=== PATIENT | male | born 1975 | race Caucasian/White ===

== ENCOUNTER 2017-10-20 11:52 | Emergency (ER) | payer OTHER ==
[~2017-10-20] VITALS: Ht 177.8 cm; Wt 63.5 kg
[~2017-10-20 11:52] MED LIST: ACIDOPHILUS1 CAP PO; BACTRIM DS 8001 TAB PO; CLONAZEPAM0.5 M2 PO; CLONAZEPAM0.5 MG PO; CYMBALTA 20 MG20 MG PO; CYMBALTA30 M1 PO; CYMBALTA60 MG PO; FLEXERIL10 MG PO; LEVSIN0.125 M1 PO; MEDROL DOSEPAK1 PAC PO; MELATONIN5 M3 PO; MIRTAZAPINE15 MG PO; PERCOCET 5-3251 EACH PO; PROTONIX20 M1 PO; REMERON15 M2 PO; SINGULAIR10 M1 PO; TAMSULOSIN HYD0.4 MG PO; VIBRAMYCIN100 MG PO; VICODIN 5-3001 EACH PO; VICODIN5-300 PO
[2017-10-20 15:43] LABS: ABSOLUTE BASOPHIL COUNT 0 /CUMM (0.0-0.2); ABSOLUTE EOSINOPHIL COUNT 0.2 /CUMM (0.0-0.7); ABSOLUTE GRANULOCYTE CT 6.4 /CUMM (1.4-6.5); ABSOLUTE MONOCYTE COUNT 0.7 /CUMM (0.10-0.60); BASOPHIL % 0.3 % (0.0-2.0); EOSINOPHIL % 1.7 % (0-5); GRANULOCYTE % 68.9 % (42.2-75.2); HEMATOCRIT 46.9 % (42-52); MEAN CORPUSCULAR HGB 30.4 PG (27.0-31.0); MEAN CORPUSCULAR HGB CONC 32.9 G/DL (33.0-37.0); MEAN CORPUSCULAR VOLUME 92.5 FL (80.0-94.0); MEAN PLATELET VOLUME 9.6 FL (7.4-10.4); PLATELET COUNT 202 /CUMM (130-400); RBC DISTRIBUTION WIDTH 13.8 % (11.5-14.5); RED BLOOD CELL CT 5.07 /CUMM (4.70-6.10); WHITE BLOOD CELL COUNT 9.3 /CUMM (4.8-10.8)
[2017-10-20 15:46] VITALS: BP 112/71
--- NOTE | 2017-10-20 16:02 | ED GI/GU/ABDOMINAL COMPLAINT ---
History of Present Illness General Chief Complaint: Abdominal Pain/Flank Pain Stated Complaint: ABD PAIN Source: patient Exam Limitations: no limitations Vital Signs & Intake/Output Vital Signs & Intake/Output Vital Signs Date Time Temp Pulse Resp B/P B/P Pulse O2 O2 Flow FiO2 Mean Ox Delivery Rate 10/20 1546 98.4 65 16 112/71 98 Room Air 10/20 1206 97.0 89 20 95/64 96 Room Air Allergies Coded Allergies: Iodinated Contrast- Oral and IV Dye (IODINATED CONTRAST MEDIA - IV DYE) (Severe, ANAPHYLAXIS 04/25/16) diphenhydramine (From BENADRYL) (INTERFERES WITH ANXIETY MEDS 04/25/16) oxycodone (ITCHY AND SWEATING 04/25/16) Reconcile Medications Clonazepam 0.5 MG TABLET 1 TAB PO PRN ANXIETY (Reported) Duloxetine Hydrochloride (Cymbalta) 30 MG CAPSULE.DR 1 CAP PO DAILY DEPRESSION (Reported) Mirtazapine (Remeron) 15 MG TABLET 1 TAB PO QPM SLEEP (Reported) Oxycodone HCl/Acetaminophen (Percocet 5-325 MG Tablet) 5 MG-325 MG TABLET 1-2 TAB PO BID pain Triage Note: PT TO ED C/O CONTINUED ABD PAIN. PT WAS SEEN IN ED FOR SAME ON 10/14. SENT HOME AND TOLD TO F/U WITH GI. PT STATES HE IS WAITING FOR GI TO CALL HIM BACK FOR AN APPT. THIS AM PT STATES THE PAIN WAS WORSE. C/O NAUSEA. DENIES V/D. STATES HE FEELS DEHYDRATED. Triage Nurses Notes Reviewed? yes Onset: Last week Duration: constant Timing: single episode today Quality/Severity: burning, dullness Severity Numbers: 6 Location: right lower quadrant Radiation: RUQ Activities at Onset: none Prior Abdominal Problems: 20 LBS WEIGHT LOSS WITHIN 1 MONTH Sexually Active: Yes (15 PARTNERS IN 6 MONTHS) Last Time You Were Sexual: less than 2 months ago Sexual Orientation: Heterosexual Use of Protection: Yes Always No Modifying Factors: none Associated Symptoms: fever/chills, fatigue HPI: PATIENT IS A 42 Y/O MALE, PMH OF ANXIETY AND HERNIA REPAIR, PRESENTS WITH ONE WEEK OF RLQ ABDOMINAL PAIN. PATIENT STATES THAT HE CAME TO THE HOSPITAL LAST WEEKS DURING WHICH THEY DID A CT SCAN OF HIS ABDOMEN WHICH WAS NEGATIVE ASIDE FOR RENAL CALCULI. LIPASE WAS SLIGHTLY ELEVATEED AT THAT TIME. HE WAS DISCHARGED WITH DIRECTIONS TO RECIEVE AN OUTPATIENT ULTRASOUND. PATIENT STATES THAT HIS PAIN CONTINUES TO BE A 6/10 AND IS WORSE WHILE LAYING ON HIS RIGHT SIDE. HE REPORTS OCCASSIONAL NAUSEA BUT NO VOMITING, CHILLS, FATIGUE, AND A 20 LBS WEIGHT LOSS IN THE LAST MONTH. HE ALSO REPORTS DECREASED SLEEP AND OCCASIONAL BLURRY VISOIN WITHIN THE LAST WEEK. HE DENIES AND CP, SOB, HEADACHE, DIZZINESS, DYSURIA, CONSTIPATION, DIARRHEA, MYALGIA, AND FEVERS. PATIENT REPORTS THAT HE RECIEVED AN ENDOSCOPY AND COLONOSCOPY AT [facility] 2 WEEKS AGO DUE TO THE RECENT WEIGHTLOSS.THERE WAS NOTHING ACUTE REPORTED. (Yanick Connelly) Past History Travel History Traveled to [facility] past 21 day No Medical History Any Pertinent Medical History? see below for history Neurological: NONE EENT: NONE Cardiovascular: NONE Respiratory: NONE Gastrointestinal: INGUINAL HERNIA Hepatic: NONE Renal: KIDNEY STONES Musculoskeletal: NONE Psychiatric: anxiety Endocrine: NONE Blood Disorders: NONE Cancer(s): NONE HEART SPECIALIST/Reproductive: PROSTATITIS Surgical History Surgical History: hernia repair-inguinal Psychosocial History Who do you live with Mother What is your primary language Swedish Tobacco Use: Current Daily Use Daily Tobacco Use Amount/Type: => 5 Cigarettes daily ETOH Use: denies use Illicit Drug Use: denies illicit drug use Family History Hx Contributory? No Sexual History Sexually Active Yes # of partners 15 Sexual Orientation Heterosexual Use of Protection Yes Always (Yanick Connelly) Review of Systems Review of Systems Constitutional: Reports: no symptoms. EENTM: Reports: blurred vision. Respiratory: Reports: no symptoms. Cardiovascular: Reports: no symptoms. GI: Reports: see HPI. Genitourinary: Reports: no symptoms. Musculoskeletal: Reports: no symptoms. Skin: Reports: no symptoms. Neurological/Psychological: Reports: no symptoms. Hematologic/Endocrine: Reports: no symptoms. Immunologic/Allergic: Reports: no symptoms. All Other Systems: Reviewed and Negative (Yanick Connelly) Physical Exam Physical Exam General Appearance: well developed/nourished, no apparent distress, alert, awake , anxious Head: atraumatic, normal appearance Eyes: Bilateral: normal appearance, EOMI. Ears, Nose, Throat, Mouth: hearing grossly normal, moist mucous membrane Neck: normal inspection Respiratory: normal breath sounds, chest non-tender, no respiratory distress, lungs clear Cardiovascular: regular rate/rhythm Gastrointestinal: normal bowel sounds, soft, no organomegaly, tenderness Rectal: deferred Male Genitals: normal genitalia, normal cremaster reflex Back: normal range of motion Skin: intact, normal color, warm/dry Core Measures ACS in differential dx? No Sepsis Present: No Sepsis Focused Exam Completed? No (Ty FELIX,Yanick) Progress Differential Diagnosis: appendicitis, biliary colic, bowel obstruction, colon cancer, cholecystitis, diverticulitis, gastritis, inflamm bowel dis, orchitis, pancreatitis, peptic ulcer Plan of Care: Orders Procedure Date/time Status LIPASE 10/20 1505 Complete COMPREHENSIVE METABOLIC PANEL 10/20 1505 Complete CBC WITHOUT DIFFERENTIAL 10/20 1505 Complete AMYLASE 10/20 1505 Complete Laboratory Tests 10/20/17 1535: Anion Gap 9, Estimated GFR > 60, BUN/Creatinine Ratio 14.4, Glucose 85, Calcium 9.1, Total Bilirubin 0.6, AST 15 L, ALT 27, Alkaline Phosphatase 66, Total Protein 6.8, Albumin 3.9, Globulin 2.9, Albumin/Globulin Ratio 1.3, Amylase 56, Lipase 132, CBC w Diff NO MAN DIFF REQ, RBC 5.07, MCV 92.5, MCH 30.4, RDW 13.8, MPV 9.6, Gran % 68.9, Lymphocytes % 21.6, Monocytes % 7.5, Eosinophils % 1.7, Basophils % 0.3, Absolute Granulocytes 6.4, Absolute Lymphocytes 2.0, Absolute Monocytes 0.7 H, Absolute Eosinophils 0.2, Absolute Basophils 0, PUBS MCHC 32.9 L 10/20/17 1505: Urine Color Cancelled, Urine Clarity Cancelled, Urine pH Cancelled, Ur Specific [place] Cancelled, Urine Protein Cancelled, Urine Ketones Cancelled, Urine Nitrite Cancelled, Urine Bilirubin Cancelled, Urine Urobilinogen Cancelled, Ur Leukocyte Esterase Cancelled, Ur Microscopic Cancelled, Urine Hemoglobin Cancelled, Urine Glucose Cancelled Initial ED EKG: none Comments: 10/20/2017 6:05:15 PM Patient clinically looks well. Patient is in no apparent distress. Patient is nontoxic-appearing. Patient is resting comfortably in room. No acute findings here in the emergency room. Patient had a recent CT scan. Spoke with Dr. Roberto from Dr. neurology. Patient is going to follow up with nurse practitioner that he is been seen in their office. Return if any other concerns. Patient has had negative HIV testing in the past year. Medically safe for discharge at this time. (Yanick Connelly) Departure Departure Disposition: HOME OR SELF CARE Condition: Stable Clinical Impression Primary Impression: Abdominal pain Referrals: Serena Campos MD (PCP/Family) Additional Instructions: F/U WITH GASTROENTEROLGIST. RETURN FI ANY CONCERNS/WORSENING OF SYMPTOMS. Departure Forms: Customer Survey General Discharge Information Prescriptions: Current Visit Scripts Oxycodone HCl/Acetaminophen (Percocet 5-325 MG Tablet) 1-2 TAB PO BID #10 TAB (Yanick Connelly) PA/INDIVIDUAL PENSION ADVISER Co-Sign Statement Statement: ED Attending supervision documentation- [] I saw and evaluated the patient. I have also reviewed all the pertinent lab results and diagnostic results. I agree with the findings and the plan of care as documented in the PA's/INDIVIDUAL PENSION ADVISER's documentation. [X] I have reviewed the ED Record and agree with the PA's/INDIVIDUAL PENSION ADVISER's documentation. [] Additions or exceptions (if any) to the PAs/INDIVIDUAL PENSION ADVISER's note and plan are summarized below: [] (Raven ALEXANDER,Valerie)
[2017-10-20] MEDS ORDERED: PERCOCET 5-3251 EACH PO (18:01)
== END 2017-10-20 17:27 ==
LOC: ERH 11:52
PROVIDERS: Physician Assistant Medical
DX: R10.31 Right lower quadrant pain (principal)

== ENCOUNTER 2017-11-10 04:36 | Emergency (ER) | payer OTHER ==
[~2017-11-10] VITALS: Ht 177.8 cm; Wt 63.5 kg
--- NOTE | 2017-11-10 05:12 | ED GI/GU/ABDOMINAL COMPLAINT ---
History of Present Illness General Chief Complaint: Abdominal Pain/Flank Pain Stated Complaint: PAIN TO RT SIDE ABD/GROIN PAIN Source: patient, old records Exam Limitations: no limitations Vital Signs & Intake/Output Vital Signs & Intake/Output Vital Signs Date Time Temp Pulse Resp B/P B/P Pulse O2 O2 Flow FiO2 Mean Ox Delivery Rate 11/10 1428 96.8 61 20 91/53 96 Room Air 11/10 1010 56 20 102/63 95 Room Air 11/10 0657 95.7 60 18 112/66 97 Room Air 11/10 0554 97.9 78 18 114/69 99 Room Air 11/10 0447 97.0 84 20 119/83 98 Room Air Allergies Coded Allergies: Iodinated Contrast- Oral and IV Dye (IODINATED CONTRAST MEDIA - IV DYE) (Severe, ANAPHYLAXIS 04/25/16) diphenhydramine (From BENADRYL) (INTERFERES WITH ANXIETY MEDS 04/25/16) oxycodone (ITCHY AND SWEATING 04/25/16) Reconcile Medications Clonazepam 0.5 MG TABLET 1 TAB PO PRN ANXIETY (Reported) Mirtazapine (Remeron) 15 MG TABLET 1 TAB PO QPM SLEEP (Reported) Triage Note: PT HERE WITH C/O BILATERAL GRION PAIN, ABD PAIN. PT REPORTS THAT THIS HAS BEEN GOING ON FOR APPROX 1 MONTH. PT REPORTS NAUSEA, DENIES VOMITTING OR DIARRHEA. Triage Nurses Notes Reviewed? yes HPI: Patient presents with right lower quadrant and right lower back pain that started on Thursday. The pain has been aching in nature. Positive anorexia but no nausea or vomiting. No diarrhea. No fevers or chills. The patient is been constant. He rates the pain at 7 out of 10. Last night his right testicle became swollen and began to hurt. Patient was unable to sleep last night so he comes in for evaluation. (Haroldo ALEXANDER,Artie Lang) Past History Travel History Traveled to [place] past 21 day No Medical History Any Pertinent Medical History? see below for history Neurological: NONE EENT: NONE Cardiovascular: NONE Respiratory: NONE Gastrointestinal: INGUINAL HERNIA BLOODY STOOLS Hepatic: NONE Renal: KIDNEY STONES Musculoskeletal: NONE Psychiatric: anxiety Endocrine: NONE Blood Disorders: NONE Cancer(s): NONE KAIAKO KOHANGA REO/Reproductive: PROSTATITIS Surgical History Surgical History: hernia repair-inguinal Psychosocial History Who do you live with Mother What is your primary language Belarusian Tobacco Use: Current Daily Use Daily Tobacco Use Amount/Type: => 5 Cigarettes daily ETOH Use: denies use Illicit Drug Use: denies illicit drug use Family History Hx Contributory? No (Haroldo ALEXANDER,Artie Lang) Review of Systems Review of Systems Constitutional: Reports: see HPI, weakness. EENTM: Reports: no symptoms. Respiratory: Reports: no symptoms. Cardiovascular: Reports: no symptoms. GI: Reports: see HPI, abdominal pain. Genitourinary: Reports: see HPI. Musculoskeletal: Reports: see HPI, back pain. Skin: Reports: no symptoms. Neurological/Psychological: Reports: no symptoms. Hematologic/Endocrine: Reports: no symptoms. Immunologic/Allergic: Reports: no symptoms. All Other Systems: Reviewed and Negative (Haroldo ALEXANDER,Artie Lang) Physical Exam Physical Exam General Appearance: well developed/nourished, alert, awake, anxious, mild distress Head: atraumatic, normal appearance Eyes: Bilateral: PERRL, EOMI. Ears, Nose, Throat, Mouth: hearing grossly normal, DRY MUCOSA Neck: normal inspection, supple, full range of motion Respiratory: normal breath sounds, chest non-tender, no respiratory distress, lungs clear Cardiovascular: regular rate/rhythm, normal peripheral pulses Gastrointestinal: normal bowel sounds, soft, tenderness (RLQ), NO GUARDING OR REBOUND Male Genitals: RIGHT TESTICLE SWOLLEN AND TENDER, NORMAL CREMESTERIC REFLEX, NO HERNIA PALPABLE. Back: normal inspection, normal range of motion, NO CVA TENDERNESS, PAIN TO RIGHT LOWER BACK JUST ABOVE THE BELT LINE BUT NONTENDER TO PALPATION. Extremities: normal range of motion Neurologic/Psych: no motor/sensory deficits, awake, alert, oriented x 3, normal gait, normal mood/affect Skin: intact, normal color, warm/dry Core Measures ACS in differential dx? No Sepsis Present: No Sepsis Focused Exam Completed? No (Artie Zarco MD) Progress Differential Diagnosis: appendicitis, diverticulitis, epididymitis, orchitis, testicular torsion Plan of Care: Orders Procedure Date/time Status URINALYSIS 11/10 050 Complete LIPASE 11/10 0509 Complete COMPREHENSIVE METABOLIC PANEL 11/10 508 Complete CBC WITHOUT DIFFERENTIAL 11/10 508 Complete AMYLASE 11/10 508 Complete Laboratory Tests 11/10/17 0840: Urinalysis LIGHT H, Urine Color YEL, Urine Clarity CLEAR, Urine pH 6.0, Ur Specific [place] 1.020, Urine Protein NEG, Urine Ketones NEG, Urine Nitrite NEG, Urine Bilirubin NEG, Urine Urobilinogen 0.2, Ur Leukocyte Esterase TRACE H, Ur Microscopic SEDIMENT EXAMINED, Urine RBC 1-3, Urine WBC 1-3 H, Urine Mucus FEW, Urine Hemoglobin NEG, Urine Glucose NEG 11/10/17 0515: Anion Gap 12, Estimated GFR > 60, BUN/Creatinine Ratio 13.3, Glucose 83, Calcium 8.9, Total Bilirubin 0.6, AST 18, ALT 38, Alkaline Phosphatase 76, Total Protein 6.5, Albumin 3.9, Globulin 2.6, Albumin/Globulin Ratio 1.5, Amylase 72, Lipase 98, CBC w Diff NO MAN DIFF REQ, RBC 5.25, MCV 92.2, MCH 30.3, RDW 13.4, MPV 10.2 , Gran % 57.1, Lymphocytes % 29.5, Monocytes % 8.9, Eosinophils % 3.9, Basophils % 0.6, Absolute Granulocytes 5.2, Absolute Lymphocytes 2.7, Absolute Monocytes 0.8 H, Absolute Eosinophils 0.4, Absolute Basophils 0.1, PUBS MCHC 32.8 L Diagnostic Imaging: Viewed by Me: CT Scan. Discussed w/RAD: CT Scan. Initial ED EKG: none Hand-Off Endorsed To: Chintan Jones MD Endorsed Time: 0700 Pending: CT, ultrasound Comments: No relief from IV Tylenol. Patient states that he is had morphine in the past and has not had a problem with it. (Haroldo ALEXANDER,Artie Lang) Diagnostic Imaging: Viewed by Me: Ultrasound. Discussed w/RAD: Ultrasound. Radiology Impression: Normal sonographic appearance of the testicles. No evidence for testicular torsion or hyperemia. Similar appearance of small right varicocele., 1. Stable appearance of the appendix by comparison with the prior study, the appendix is gas containing and is normal in caliber currently measuring approximately 5 mm in diameter with no periappendiceal inflammatory changes present. 2. There is circumferential wall thickening of a 7 cm segment of the distal ileum to the level of the ileocecal junction with contrast present within a very narrow lumen (string sign). The finding suggests an inflammatory bowel syndrome such as Crohn's disease. Clinical correlation requested. Hand-Off Endorsed To: Yordy Jasmine MD Endorsed Time: 1500 Pending: consult (GI) Comments: Disucssed with GI requests MRI/A pancreatic protocol. No MRI today. GI to see patient in ED. (Chintan Jones MD) Comments: 11/10/17 15:00 pt signed out to me by dr jones. dr hanson to evaluate pt shortly. 11/10/2017 3:21:01 PM the patient evaluated by Dr. Hanson who feels the patient is stable for outpatient management and is asked the patient to call her office. In the meantime patient be treated with dicyclomine. (Mitali ALEXANDER,Yordy Gil) Departure Departure Condition: Stable Departure Forms: Customer Survey General Discharge Information (Haroldo ALEXANDER,Artie Lang) Departure Referrals: Beth ALEXANDER,Serena (PCP/Family) Onofre ALEXANDER,Dean Sánchez MD,Arley (Chintan Joens MD) Departure Disposition: HOME OR SELF CARE Clinical Impression Primary Impression: Lower abdominal pain, unspecified Secondary Impressions: Right varicocele Additional Instructions: Dicyclomine as prescribed for abdominal pain. Follow-up with Dr. Hanson this week. Notify your primary care doctor of this emergency department visit and treatment plan. Return if any concerns or sudden worsening. Please note that there might be incidental findings in your evaluation that are unrelated to the current emergency department visit. Please notify your primary care doctor about this emergency department visit in order to obtain and review all of the testing performed so that these incidental findings can be monitored as needed. If you had an x-ray performed, please understand that some fractures may not be seen on the initial set of x-rays. If your symptoms persist you might need a repeat set of x-rays to check for such a fracture. If you had a laceration evaluated, please understand that foreign bodies such as glass or wood may not be visible to the naked eye or on plain x-rays. If the wound becomes red, swollen, increasingly more painful or if there is any drainage from the wound, please have it reevaluated by a physician for the possibility of a retained foreign body. If you're unable to follow up as outlined in the discharge instructions please return to the emergency department. Thank you for choosing the [facility] Emergency Department for your care. It was a pleasure to serve you today. Yordy Jasmine M.D. [facility] Prescriptions: Current Visit Scripts Dicyclomine HCl 1 TAB PO Q6 PRN abdominal pain #28 TAB (Mitali ALEXANDER,Yordy Gil)
[2017-11-10 05:27] LABS: ABSOLUTE BASOPHIL COUNT 0.1 /CUMM (0.0-0.2); ABSOLUTE EOSINOPHIL COUNT 0.4 /CUMM (0.0-0.7); ABSOLUTE GRANULOCYTE CT 5.2 /CUMM (1.4-6.5); ABSOLUTE LYMPH COUNT 2.7 /CUMM (1.2-3.4); ABSOLUTE MONOCYTE COUNT 0.8 /CUMM (0.10-0.60); BASOPHIL % 0.6 % (0.0-2.0); EOSINOPHIL % 3.9 % (0-5); GRANULOCYTE % 57.1 % (42.2-75.2); HEMATOCRIT 48.4 % (42-52); MEAN CORPUSCULAR HGB 30.3 PG (27.0-31.0); MEAN CORPUSCULAR HGB CONC 32.8 G/DL (33.0-37.0); MEAN CORPUSCULAR VOLUME 92.2 FL (80.0-94.0); MEAN PLATELET VOLUME 10.2 FL (7.4-10.4); PLATELET COUNT 189 /CUMM (130-400); RBC DISTRIBUTION WIDTH 13.4 % (11.5-14.5); RED BLOOD CELL CT 5.25 /CUMM (4.70-6.10); WHITE BLOOD CELL COUNT 9.1 /CUMM (4.8-10.8)
--- NOTE | 2017-11-10 08:35 | ULTRASOUND REPORT ---
EXAMINATION: US SCROTUM CLINICAL INFORMATION: Right testicular pain COMPARISON: Scrotal ultrasound from 12/24/2015 TECHNIQUE: A sonogram of the scrotum was performed assessing guan-scale appearance and color Doppler flow. Spectral analysis and Doppler interrogation was performed. FINDINGS: RIGHT: Right testicle measures 4.7 x 2.2 x 3.9 cm, with volume of 29 mL. Parenchymal echotexture is normal. No focal testicular parenchymal lesions are visualized. Normal symmetric intratesticular flow is visualized. Right epididymal head is normal in size. No hydrocele. Small varicocele again noted, similar compared to prior. LEFT: Left testicle measures 4.5 x 2.2 x 3.9 cm, with volume of 27 mL. Parenchymal echotexture is normal. No focal testicular parenchymal lesions are visualized. Normal symmetric intratesticular flow is visualized. Left epididymal head is normal in size. No left hydrocele or varicocele is seen. IMPRESSION: Normal sonographic appearance of the testicles. No evidence for testicular torsion or hyperemia. Similar appearance of small right varicocele.
--- NOTE | 2017-11-10 08:48 | CT SCAN REPORT ---
EXAMINATION: CT ABDOMEN AND PELVIS WITH CONTRAST CLINICAL INFORMATION: Right lower quadrant pain, presumptive diagnosis acute appendicitis. COMPARISON: CT scan of the abdomen and pelvis dated 10/14/2017. TECHNIQUE: Multidetector volumetric imaging was performed from the superior aspect of the liver through the pubic symphysis following administration of oral contrast. Sagittal and coronal reformatted images were obtained on the technologist's workstation. DLP: 288.54 mGy-cm FINDINGS: LUNG BASES: There is dependent atelectasis present in the bilateral lung bases. LIVER, GALLBLADDER, AND BILIARY TREE: The liver is normal in size, shape, and attenuation. No focal hepatic lesion or biliary ductal dilatation is present. The gallbladder is unremarkable with no evidence of radiopaque gallstones, gallbladder wall thickening, or obvious pericholecystic inflammatory changes. PANCREAS: Normal. SPLEEN: Normal appearance. ADRENAL GLANDS: Normal appearance. KIDNEYS AND URETERS: There are small calculi present in the mid and lower pole of the right kidney measuring 3 mm in diameter at the cortical medullary junction. There are no findings to suggest obstruction. Specifically there is no evidence of hydroureter or hydronephrosis, the visualized portions of the right ureter is normal in caliber to the level of the ureterovesical junction. No right-sided perinephric stranding is identified The left kidney is normal in size, shape, and attenuation. No hydronephrosis, hydroureter, or calculi seen. No perinephric stranding. BLADDER: No bladder calculi are present. GASTROINTESTINAL TRACT: There is wall thickening of the terminal ileum, with contrast material present in the central lumen, this extends over a length of terminal ileum of approximately 7 cm. Circumferential thickening at the ileocecal junction is noted, which is circumferential. The remainder of the small bowel loops and colonic loops are normal in appearance and caliber. There is no evidence of bowel obstruction at this time. Again noted is the appendix which contains a small amount of gas, no inflammatory changes in the wall of the appendix are noted in the diameter of the appendix measures approximately 5 mm. No periappendiceal inflammatory changes are present. ABDOMINAL WALL: No significant hernia is appreciated. LYMPH NODES: No pathologically enlarged lymph nodes are present. VASCULAR: Unremarkable. PELVIC VISCERA: Prostate gland is not enlarged. OSSEOUS STRUCTURES: No focal osseous lesions are noted. No sclerotic changes involving the sacroiliac joints are noted. IMPRESSION: 1. Stable appearance of the appendix by comparison with the prior study, the appendix is gas containing and is normal in caliber currently measuring approximately 5 mm in diameter with no periappendiceal inflammatory changes present. 2. There is circumferential wall thickening of a 7 cm segment of the distal ileum to the level of the ileocecal junction with contrast present within a very narrow lumen (string sign). The finding suggests an inflammatory bowel syndrome such as Crohn's disease. Clinical correlation requested.
[2017-11-10] MEDS ORDERED: DICYCLOMINE HCL20 M1 PO (15:26)
[2017-11-10 15:36] VITALS: BP 108/67
--- NOTE | 2017-11-10 18:11 | Cons- Gastroenterology ---
General Information and HPI Consulting Request Date of Consult: 11/10/17 Requested By: Dr. Jones Reason for Consult: 1. Abdominal Pain 2. Abnormal CT scan of the abdomen Source of Information: patient, Electronic Medical Record Exam Limitations: no limitations History of Present Illness: Patient is a 42-year-old white male who has been seen by Fern Loaiza for evaluation of right-sided abdominal pain. He has also been seen by Dr. Jarrett Roberto for completion of both EGD and colonoscopy. Colonoscopy was completely normal. There is no evidence of colitis and the terminal ileum was completely visualized and was normal in its entirety. EGD was likewise completely normal. Biopsies obtained from the esophagus and from the stomach were unremarkable. There was mild chronic gastritis without H. pylori. I was called by Dr. Jones to evaluate Mr. Sampson who have been seen in the ED multiple times complaining of right-sided abdominal pain. He had had a CT scan of the abdomen and pelvis with oral contrast only which was read as showing a string sign. I reviewed the CT scan with radiology and although there was an abnormality in the terminal ileum it was felt that this was artifactual. Patient does not complain of diarrhea. He is not anemic. He has not had any bloody stools. He does have some mild chronic nausea but no vomiting. He reports that he has a pressure that is almost constant in the inguinal femoral region with a pain level that is at a 4 out of 10. He reports that he also sometimes sees a bulge. It is not exacerbated by movement and there is been no change in his bowel habit. He is not constipated. He has not had any melena. He has no family history of breast ovarian uterine or colon cancer and has no family history of inflammatory bowel disease and denies family history or personal history of Crohn's disease or ulcerative colitis. Workup to date has included a HIDA scan with CCK which was entirely normal with a gallbladder ejection fraction of over 80%. He also had a CT scan of the abdomen in September that showed 2 nonobstructing right renal calculi. At that time the appendix measures 6-7 mm with no definite periappendiceal inflammation. In the office he had been scheduled to get an MRI for evaluation of an elevated lipase of over 800 but that had not been done because of lack of coordination regarding need for preparation given a contrast allergy. Allergies/Medications Allergies: Coded Allergies: Iodinated Contrast- Oral and IV Dye (IODINATED CONTRAST MEDIA - IV DYE) (Severe, ANAPHYLAXIS 04/25/16) diphenhydramine (From BENADRYL) (INTERFERES WITH ANXIETY MEDS 04/25/16) oxycodone (ITCHY AND SWEATING 04/25/16) Home Med List: Clonazepam 0.5 MG TABLET 1 TAB PO PRN ANXIETY (Reported) Dicyclomine HCl 20 MG TABLET 1 TAB PO Q6 PRN abdominal pain Mirtazapine (Remeron) 15 MG TABLET 1 TAB PO QPM SLEEP (Reported) Current Medications: Current Medications Sig/Maria Start time Last Medication Dose Route Stop Time Status Admin Acetaminophen 1,000 MG ONCE ONE 11/10 0845 DC IV 11/10 0846 Ketorolac 0 .STK-MED ONE 11/10 0516 DC Tromethamine .ROUTE Ketorolac 30 MG ONCE ONE 11/10 0515 DC 11/10 Tromethamine IV 11/10 0516 0520 Morphine Sulfate 0 .STK-MED ONE 11/10 0603 DC .ROUTE Morphine Sulfate 4 MG ONCE ONE 11/10 0600 DC 11/10 IV 11/10 0601 0604 Sodium Chloride 1,000 ML BOLUS ONE 11/10 0515 DC 11/10 IV 11/10 0614 0519 Past History Travel History Traveled to [place] past 21 day No Medical History Neurological: NONE EENT: NONE Cardiovascular: NONE Respiratory: NONE Gastrointestinal: INGUINAL HERNIA BLOODY STOOLS Hepatic: NONE Renal: KIDNEY STONES Musculoskeletal: NONE Psychiatric: anxiety Endocrine: NONE Blood Disorders: NONE Cancer(s): NONE 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 EENTM: Denies: no symptoms. Cardiovascular: Denies: no symptoms. Respiratory: Denies: no symptoms. GI: Reports: see HPI. Genitourinary: Reports: see HPI. Musculoskeletal: Denies: no symptoms. Skin: Denies: no symptoms. Neurological/Psychological: Denies: no symptoms. Exam & Diagnostic Data Vital Signs and I&O Vital Signs Date Time Temp Pulse Resp B/P B/P Pulse O2 O2 Flow FiO2 Mean Ox Delivery Rate 11/10 1536 65 20 108/67 95 11/10 1428 96.8 61 20 91/53 96 Room Air 11/10 1010 56 20 102/63 95 Room Air 11/10 0657 95.7 60 18 112/66 97 Room Air 11/10 0554 97.9 78 18 114/69 99 Room Air 11/10 0447 97.0 84 20 119/83 98 Room Air Intake & Output 11/10 1600 11/10 0400 11/09 1600 11/09 0400 11/08 0400 Intake Total Output Total 300 Balance -300 Output, Urine 300 Patient 140 lb Weight Weight Estimated Measurement Method Physical Exam General Appearance: well developed/nourished, no apparent distress, comfortable Head: atraumatic, normal appearance Eyes: Bilateral: normal appearance. Ears, Nose, Throat: hearing grossly normal Neck: full range of motion Respiratory: no respiratory distress Cardiovascular: regular rate/rhythm Gastrointestinal: normal bowel sounds, soft, non-tender, no rebound or guarding, no hernias noted Back: normal inspection Extremities: normal inspection Neurologic/Psych: awake, alert, oriented x 3 Cranial Nerves: Cranial Nerves II-XII intact Results Pertinent Lab Results: Laboratory Tests 11/10 11/10 0840 0515 Chemistry Sodium (137 - 145 mmol/L) 143 Potassium (3.5 - 5.1 mmol/L) 3.8 Chloride (98 - 107 mmol/L) 105 Carbon Dioxide (22 - 30 mmol/L) 25 Anion Gap (5 - 16) 12 BUN (9 - 20 mg/dL) 12 Creatinine (0.7 - 1.2 mg/dL) 0.9 Estimated GFR (>60 ml/min) > 60 BUN/Creatinine Ratio (7 - 25 %) 13.3 Glucose (65 - 99 mg/dL) 83 Calcium (8.4 - 10.2 mg/dL) 8.9 Total Bilirubin (0.2 - 1.3 mg/dL) 0.6 AST (17 - 59 U/L) 18 ALT (21 - 72 U/L) 38 Alkaline Phosphatase (< 127 U/L) 76 Total Protein (6.3 - 8.2 g/dL) 6.5 Albumin (3.5 - 5.0 g/dL) 3.9 Globulin (1.9 - 4.2 gm/dL) 2.6 Albumin/Globulin Ratio (1.1 - 2.2 %) 1.5 Amylase (30 - 110 U/L) 72 Lipase (23 - 300 U/L) 98 Hematology CBC w Diff NO MAN DIFF REQ WBC (4.8 - 10.8 /CUMM) 9.1 RBC (4.70 - 6.10 /CUMM) 5.25 Hgb (14.0 - 18.0 G/DL) 15.9 Hct (42 - 52 %) 48.4 MCV (80.0 - 94.0 FL) 92.2 MCH (27.0 - 31.0 PG) 30.3 RDW (11.5 - 14.5 %) 13.4 Plt Count (130 - 400 /CUMM) 189 MPV (7.4 - 10.4 FL) 10.2 Gran % (42.2 - 75.2 %) 57.1 Lymphocytes % (20.5 - 51.1 %) 29.5 Monocytes % (1.7 - 9.3 %) 8.9 Eosinophils % (0 - 5 %) 3.9 Basophils % (0.0 - 2.0 %) 0.6 Absolute Granulocytes (1.4 - 6.5 /CUMM) 5.2 Absolute Lymphocytes (1.2 - 3.4 /CUMM) 2.7 Absolute Monocytes (0.10 - 0.60 /CUMM) 0.8 H Absolute Eosinophils (0.0 - 0.7 /CUMM) 0.4 Absolute Basophils (0.0 - 0.2 /CUMM) 0.1 PUBS MCHC (33.0 - 37.0 G/DL) 32.8 L Urines Urinalysis LIGHT H Urine Color (YEL,AMB,STR) YEL Urine Clarity (CLEAR) CLEAR Urine pH (5.0 - 8.0) 6.0 Ur Specific [place] (1.001 - 1.035) 1.020 Urine Protein (NEG,<30 MG/DL) NEG Urine Ketones (NEG) NEG Urine Nitrite (NEG) NEG Urine Bilirubin (NEG) NEG Urine Urobilinogen (0.1 - 1.0 EU/dl) 0.2 Ur Leukocyte Esterase (NEG) TRACE H Ur Microscopic SEDIMENT EXAMINED Urine RBC (0 - 5 /HPF) 1-3 Urine WBC (0 - 2 /HPF) 1-3 H Urine Mucus (FEW,NONE) FEW Urine Hemoglobin (NEG) NEG Urine Glucose (N MG/DL) NEG Assessment/Plan Assessment/Recommendations: ASSESSMENT: 1. RLQ Pain -- unclear etiology of right lower quadrant pain. There is little to support a diagnosis of Crohn's disease. And I have reviewed the patient's CT scan and there is no evidence of internal hernia or other hernia. One might consider a possible diagnosis of subacute appendicitis. 2. Elevated lipase -- patient denies history of alcohol abuse. There is no evidence of gallstone ileus or gallstone pancreatitis on CT liver enzymes were normal and repeat lipase in ED was normal. RECOMMENDATIONS: 1. Discussed with patient that he will follow-up with me in office within the next 1-5 days 2. We'll consider CT enterography,, repeat colonoscopy, possible IBD serology and possible surgical consultation. 3. All patient's questions answered. Was discharged to home with a prescription for dicyclomine. Consult Acknowledgment - Thank you for your consult request.
== END 2017-11-10 15:37 ==
LOC: ERH 04:36
PROVIDERS: Emergency Medicine
DX: I86.1 Scrotal varices (principal); R10.31 Right lower quadrant pain
CPT/HCPCS: 74176; 81001; 96361; 96374; 96375; J1885

== ENCOUNTER → 2018-01-29 | Day surgery (SDC) | payer OTHER ==
[~2018-01-29] VITALS: Ht 177.8 cm; Wt 68.0 kg
[~2018-01-29] MED LIST changes: +DICYCLOMINE HCL20 M1 PO; +KEFLEX500 M1 PO; +MIRTAZAPINE15 M2 PO; +VITAMIN D250000 UNIT PO
--- NOTE | 2018-02-01 14:31 | Operative Report ---
Operative/Inv Procedure Report Surgery Date: 01/29/18 Name of Procedure: Open anterior mesh repair of incarcerated umbilical hernia Pre-Operative Diagnosis: Incarcerated umbilical hernia Post-Operative Diagnosis: Same Estimated Blood Loss: scant Surgeon/Golf Instructor: Felecia ALEXANDER,[place] FELIX Anesthesia: general endotracheal tube Operative/Procedure Note Note: Patient was placed on the OR table in the supine position. After successful induction of general anesthesia, another timeout was done, antibiotics given, the abdomen was clipped prepped and draped in the usual sterile fashion. An incision was planned overlying the hernia, this spot was infiltrated with local anesthetic and then made with a 15 blade. This was deepened with cautery and the incarcerated herniated fat and overlying sac were dissected circumferentially off the fascia, defining the true edges of the defect. It was oriented horizontally, we then inserted the Ventralex coated 4.3 centimeter mesh underneath the defect using the tails to center it and then closed the defect with interrupted 2-0 Maxon sutures in this case 4, incorporating the mesh with each bite. The subcutaneous layer and Norm's fascia were reapproximated to cover. The incision was irrigated and then the skin was reapproximated with a running subcuticular 4-0 Biosyn, followed by Mastisol, Steri-Strips Telfa Tegaderm. EBL minimal lap and sponge counts correct wound expectancy clean IV fluids crystalloid complications none patient tolerated the procedure well was awakened extubated returned to the recovery room in satisfactory condition.
== END ==
LOC: STS 01:43
DX: K42.0 Umbilical hernia with obstruction, without gangrene (principal); F17.200 Nicotine dependence, unspecified, uncomplicated
CPT/HCPCS: C1781; C9399; J0131; J0690; J2250

== ENCOUNTER 2018-06-15 06:25 | Emergency (ER) | payer OTHER ==
[~2018-06-15] VITALS: Ht 177.8 cm; Wt 63.5 kg
[~2018-06-15 06:25] MED LIST changes: +NAPROSYN500 M1 PO
--- NOTE | 2018-06-15 07:57 | ED GENERAL ADULT ---
See Addendum History of Present Illness General Chief Complaint: General Adult Stated Complaint: "WEAKNESS,TROUBLE EATING,RT FLANK PAIN,+N,CHILLS" Source: patient Exam Limitations: no limitations Vital Signs & Intake/Output Vital Signs & Intake/Output Vital Signs Date Time Temp Pulse Resp B/P B/P Pulse O2 O2 Flow FiO2 Mean Ox Delivery Rate 06/15 1508 80 108/66 06/15 1354 97.7 72 18 94/58 96 Room Air 06/15 1118 97.9 70 18 100/58 97 Room Air 06/15 0947 98.4 74 20 84/40 98 Room Air 06/15 0631 98.0 77 18 119/83 98 Room Air Allergies Coded Allergies: Iodinated Contrast- Oral and IV Dye (Severe, ANAPHYLAXIS 06/13/18) diphenhydramine (From BENADRYL) (Intermediate, INTERFERES WITH ANXIETY MEDS, EDGY 06/13/18) aripiprazole (From ABILIFY) (UNKNOWN PER PT DOESNT REMEMBER 06/13/18) strawberry (HIVES 06/13/18) Reconcile Medications Clonazepam 0.5 MG TABLET 1 TAB PO BID PRN ANXIETY (Reported) Ergocalciferol (Vitamin D2) (Vitamin D2) 50,000 UNIT CAPSULE 1 CAP PO Q2W SUPPLEMENT (Reported) Mirtazapine (Remeron) 15 MG TABLET 1 TAB PO QPM ANXIETY (Reported) Naproxen (Naprosyn) 500 MG TABLET 1 TAB PO BID PAIN Oxycodone HCl/Acetaminophen (Percocet 5-325 MG Tablet) 5 MG-325 MG TABLET 1-2 TAB PO Q6P PRN pain Triage Note: C/O R SIDED ABDOMINAL/FLANK PAIN SINCE LAST PM WITH NAUSEA, UNABLE TO EAT OR DRINK X 2 DAYS. SEEN HERE ON 06/13. UNABLE TO GET APPOINTMENT WITH SIGNALER. DENIES URINARY SXS. Triage Nurses Notes Reviewed? yes Onset: Abrupt Duration: day(s): Timing: recent history HPI: 06/15/18 8:37 AM 43-year-old male presents to the emergency department for ongoing chills. No documented fever. He also has right-sided flank pain. He was seen and evaluated by me in the emergency department and had unremarkable labs. Now he presents with ongoing chills but now has right-sided flank pain. CT scan has been ordered and repeat labs. Also chest x-ray. Physical exam reveals right- sided CVA tenderness. Abdomen is soft and nontender. Past History Travel History Traveled to [place] past 21 day No Medical History Any Pertinent Medical History? 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 No Review of Systems Review of Systems Constitutional: Denies: fever. EENTM: Denies: visual changes. Respiratory: Denies: short of breath. Cardiovascular: Denies: chest pain. GI: Denies: abdominal pain. Genitourinary: Reports: no symptoms. Musculoskeletal: Reports: no symptoms. Skin: Reports: no symptoms. Neurological/Psychological: Reports: no symptoms. Hematologic/Endocrine: Reports: no symptoms. Immunologic/Allergic: Reports: no symptoms. Physical Exam Physical Exam General Appearance: well developed/nourished, alert, awake, anxious Head: atraumatic, normal appearance Eyes: Bilateral: normal appearance, PERRL, EOMI. Ears, Nose, Throat: normal pharynx, normal ENT inspection Neck: normal inspection, supple, full range of motion Respiratory: normal breath sounds, chest non-tender, no respiratory distress Cardiovascular: regular rate/rhythm Peripheral Pulses: 4+ radial (R), 4+ radial (L) Gastrointestinal: soft, non-tender Back: normal range of motion Extremities: No calf tenderness. His right ankle is in a posterior splint. Neurologic/Psych: no motor/sensory deficits, awake, alert, oriented x 3 Skin: intact, normal color, warm/dry Core Measures ACS in differential dx? No CVA/TIA Diagnosis: No Sepsis Present: No Sepsis Focused Exam Completed? No Progress Differential Diagnoses I considered the following diagnoses in my evaluation of the patient: [Lyme disease, sepsis, osteomyelitis, renal colic, appendicitis, diverticulitis,] Plan of Care: Orders Procedure Date/time Status Add-on Test (ER Only) 06/15 1701 Active EKG 06/15 1643 Active MISTAKE 06/15 1500 Active Add-on Test (ER Only) 06/15 0946 Active TROPONIN LEVEL 06/15 0900 Complete LACTIC ACID 06/15 09 Complete CULTURE,URINE 06/15 833 Active URINE DRUGS OF ABUSE 06/15 833 Complete URINALYSIS 06/15 833 Complete COMPREHENSIVE METABOLIC PANEL 06/15 833 Complete CBC WITHOUT DIFFERENTIAL 06/15 833 Complete Laboratory Tests 06/15/18 1300: Urine Opiates Screen < 100, Methadone Screen < 40, Barbiturate Screen < 60, Ur Phencyclidine Scrn < 6.00, Amphetamines Screen < 100, U Benzodiazepines Scrn < 85, Urine Cocaine Screen < 50, Urine Cannabis Screen < 5.00, Urinalysis LIGHT H , Urine Color YEL, Urine Clarity HAZY H, Urine pH 6.0, Ur Specific [place] 1.020, Urine Protein NEG, Urine Ketones NEG, Urine Nitrite NEG, Urine Bilirubin NEG, Urine Urobilinogen 0.2, Ur Leukocyte Esterase NEG, Ur Microscopic SEDIMENT EXAMINED, Urine RBC RARE, Urine WBC 1-3 H, Ur Epithelial Cells RARE, Urine Crystals 1+ CA OX H, Urine Bacteria FEW H, Urine Mucus MANY H, Urine Hemoglobin NEG, Urine Glucose NEG 06/15/18 0900: Anion Gap 7, Estimated GFR > 60, BUN/Creatinine Ratio 10.0, Glucose 88, Lactic Acid 0.7, Calcium 9.1, Total Bilirubin 0.4, AST 12 L, ALT 26, Alkaline Phosphatase 71, Troponin I < 0.01, Total Protein 6.2 L, Albumin 3.7, Globulin 2.5, Albumin/Globulin Ratio 1.5, CBC w Diff NO MAN DIFF REQ, RBC 4.61 L, MCV 89.5, MCH 31.2 H, MCHC 34.9, RDW 13.7, MPV 10.1, Gran % 53.2, Lymphocytes % 34.5, Monocytes % 7.6, Eosinophils % 3.7, Basophils % 1.0, Absolute Granulocytes 5.3, Absolute Lymphocytes 3.4, Absolute Monocytes 0.8 H, Absolute Eosinophils 0.4, Absolute Basophils 0.1 Microbiology 06/15 1300 URINE ROUT: Urine Culture - RECD Initial ED EKG: NSR Departure Departure Disposition: STILL A PATIENT Condition: Stable Clinical Impression Primary Impression: Weakness Secondary Impressions: Abdominal pain Referrals: Serena Campos MD (PCP/Family) Departure Forms: Customer Survey General Discharge Information Comments The patient received IV fluids. His labs are completely unremarkable. Chest x- ray is negative. CT scan of the abdomen and pelvis is negative. Urinalysis reveals some calcium oxalate crystals present otherwise unremarkable. Other than being tired he currently has no complaints. He has had multiple episodes of abdominal pain in the past. He denies any chest pain or shortness of breath. PERC score low risk. He did have surgery on his right ankle but that was at the end of March, more than 6 weeks ago.Wells score zero. Critical Care Note Critical Care Note Critical Care Time: non-applicable
--- NOTE | 2018-06-15 09:06 | RADIOLOGY REPORT ---
EXAMINATION: XR CHEST CLINICAL INFORMATION: Right flank pain and chills. Evaluate for pneumonia. COMPARISON: 12/03/2017 TECHNIQUE: 2 views of the chest were obtained. FINDINGS: The lungs are well-inflated and clear. Trachea is midline in position. No interstitial disease, consolidation, mass, pneumothorax or pleural effusion. The cardiac silhouette is normal in size. The mediastinal, hilar and diaphragmatic contours are normal. Bones are unremarkable. The upper abdomen is unremarkable. IMPRESSION: No evidence of pneumonia.
[2018-06-15 09:15] LABS: ABSOLUTE BASOPHIL COUNT 0.1 /CUMM (0.0-0.2); ABSOLUTE EOSINOPHIL COUNT 0.4 /CUMM (0.0-0.7); ABSOLUTE GRANULOCYTE CT 5.3 /CUMM (1.4-6.5); ABSOLUTE LYMPH COUNT 3.4 /CUMM (1.2-3.4); ABSOLUTE MONOCYTE COUNT 0.8 /CUMM (0.10-0.60); EOSINOPHIL % 3.7 % (0-5); GRANULOCYTE % 53.2 % (42.2-75.2); HEMATOCRIT 41.2 % (42-52); MEAN CORPUSCULAR HGB 31.2 PG (27.0-31.0); MEAN CORPUSCULAR HGB CONC 34.9 G/DL (33.0-37.0); MEAN CORPUSCULAR VOLUME 89.5 FL (80.0-94.0); MEAN PLATELET VOLUME 10.1 FL (7.4-10.4); PLATELET COUNT 198 /CUMM (130-400); RBC DISTRIBUTION WIDTH 13.7 % (11.5-14.5); RED BLOOD CELL CT 4.61 /CUMM (4.70-6.10)
--- NOTE | 2018-06-15 09:18 | CT SCAN REPORT ---
EXAMINATION: CT ABDOMEN AND PELVIS WITHOUT CONTRAST CLINICAL INFORMATION: Right flank pain and chills. Assess for ureterolithiasis. COMPARISON: CT scan of the abdomen 01/11/2018. TECHNIQUE: Multidetector volumetric imaging was performed from the superior aspect of the liver through the pubic symphysis. Sagittal and coronal reformatted images were obtained on the technologist's workstation. DLP: 274.8 mGy-cm FINDINGS: LUNG BASES: The lung bases are unremarkable. LIVER, GALLBLADDER, AND BILIARY TREE: The liver is normal in size, shape, and attenuation. No focal hepatic lesion or biliary ductal dilatation is present. The gallbladder is unremarkable with no evidence of radiopaque gallstones, gallbladder wall thickening, or obvious pericholecystic inflammatory changes. PANCREAS: Unremarkable. SPLEEN: Unremarkable. ADRENAL GLANDS: The adrenal glands are not enlarged. KIDNEYS AND URETERS: The kidneys are normal in size, shape and attenuation. The right kidney measures 10.6 cm and the left kidney measures 11.0 cm. There has been no interval change 2 mm nonobstructive calculus at the midpole of the right kidney. The previously noted 2 mm calcification toward the lower pole of the right kidney is no longer visualized. There are no radiodense calculi in the left kidney. There is no hydronephrosis or hydroureter. There is no perinephric stranding. BLADDER: The urinary bladder is partially distended. GASTROINTESTINAL TRACT: The stomach and loops of small bowel are unremarkable. The appendix is not discretely identified, but there is no pericecal inflammatory change. There is moderate stool within the large bowel and rectum. There is no evidence of obstruction or inflammation. ABDOMINAL WALL: The study redemonstrates the fat-containing umbilical hernia, which is smaller compared to the prior study. LYMPH NODES: There is no pelvic lymphadenopathy. There are a few small mesenteric lymph nodes which are nonspecific. VASCULAR: The vascular structures are unremarkable. There are no aneurysms. PELVIC VISCERA: The prostate gland measures 4.8 cm in transverse diameter, similar compared to the prior study. There are multiple punctate prostatic calcifications. There is no free fluid in the pelvis. OSSEOUS STRUCTURES: There is no significant spondylosis. There are no acute fractures or subluxations. IMPRESSION: 1. There is a nonobstructive right renal calculus. The previously noted renal calculus at the lower pole of the right kidney stone is no longer visualized. There is no evidence of hydronephrosis or hydroureter. 2. The appendix is not discretely identified, but there is no evidence of pericecal inflammatory change.
[2018-06-15 15:08] VITALS: BP 108/66
== END 2018-06-15 18:10 ==
LOC: ERH 06:25
PROVIDERS: Emergency Medicine
DX: R53.1 Weakness (principal); R10.9 Unspecified abdominal pain; R68.83 Chills (without fever); F17.210 Nicotine dependence, cigarettes, uncomplicated; N41.9 Inflammatory disease of prostate, unspecified
CPT/HCPCS: 71046; 74176; 80307; 81001; 87086; 93005; 93010; 96361; 96365; 96375; J0131; J1885